=== PATIENT | female | born 1960 | race Caucasian/White ===

== ENCOUNTER 2018-09-08 10:34 | Emergency (ER) | payer SELFPAY ==
[2018-09-08] MEDS ORDERED: Adacel (T-DAP) 0.5 ML SYRINGE ONE (11:24)
== END 2018-09-08 11:35 | disposition home or self-care (01) ==
LOC: SCSER 10:34
DX: L72.3 Sebaceous cyst (principal); E11.9 Type 2 diabetes mellitus without complications; K21.9 Gastro-esophageal reflux disease without esophagitis; I10 Essential (primary) hypertension
CPT/HCPCS: 10061; 90471; 90715